=== PATIENT | female | born 1965 | race Hispanic/Latino ===

== ENCOUNTER 2024-08-08 09:18 | Outpatient (CLI) | payer BC ==
[2024-08-08] MEDS ORDERED: Magnevist 469MG/ML 20 ML VIAL ONE (09:59)
== END 2024-08-08 09:19 | disposition home or self-care (01) ==
LOC: CSHMRI 09:18
PROVIDERS: ATTEND Otolaryngology Plastic Surgery within the Head & Neck
DX: H90.3 Sensorineural hearing loss, bilateral (principal); R93.89 Abnormal findings on diagnostic imaging of other specified body structures
CPT/HCPCS: 70553